=== PATIENT | male | born 1955 | race African-American/Black ===

== ENCOUNTER 2017-11-15 14:21 | Emergency (ER) | payer BC, MEDICAID ==
[~2017-11-15] VITALS: Ht 190.5 cm; Wt 104.3 kg
[2017-11-15 14:24] VITALS: BP_SYST 119
[2017-11-15] MEDS ORDERED: ASPIRIN 325 MG TABLET PO ONE (14:45)
[2017-11-15 15:49] LABS: HEMATOCRIT 40.4 % (36-54); HEMOGLOBIN 13.4 g/dL (14.0-18.0); MEAN CORPUSCULAR HEMOGLOBIN 32 pg (27-31); MEAN CORPUSCULAR HGB CONC 33 % (32-36); MEAN CORPUSCULAR VOLUME 96 fL (79.0-98.0); PLATELET COUNT (AUTO) 236 K/uL (130-430); RED BLOOD CELL COUNT(AUTO) 4.22 MIL/uL (4.2-6.2); RED CELL DISTRIBUTION WIDTH 12.1 % (9.0-15.0); WHITE BLOOD COUNT (AUTO) 3.6 K/uL (4.8-10.8)
[2017-11-15 16:04] LABS: CALCIUM 8.6 mg/dL (8.4-11.0); CREATININE 1.1 mg/dL (0.55-1.30); POTASSIUM 4.4 mmol/L (3.5-5.1)
[2017-11-15 16:09] LABS: ALBUMIN 2.9 g/dL (3.4-4.8); TOTAL BILIRUBIN 0.6 mg/dL (0.0-1.0)
[2017-11-15 16:55] LABS: BAND % (MANUAL) 0 % (0-6); BASOPHILS % (MANUAL) 0 % (0-2); EOSINOPHILS % (MANUAL) 3 % (0-7); LYMPHOCYTES % (MANUAL) 46 % (20-46); MONOCYTES % (MANUAL) 14 % (0-11)
[2017-11-15 16:59] VITALS: BP_SYST 132
== END 2017-11-15 17:00 | disposition home or self-care (01) ==
LOC: SED 14:21
DX: R07.89 Other chest pain (principal)
CPT/HCPCS: 36415; 71045; 80053; 83880; 84484; 85007; 85027; 85379; 93005; 99285

== ENCOUNTER 2019-07-23 15:53 | Emergency (ER) | payer MEDICARE, OTHER ==
[~2019-07-23] VITALS: Ht 190.5 cm; Wt 104.3 kg
== END 2019-07-23 18:10 | disposition home or self-care (01) ==
LOC: SED 15:53
DX: S69.82XA Other specified injuries of left wrist, hand and finger(s), initial encounter (principal); X58.XXXA Exposure to other specified factors, initial encounter; Y93.89 Activity, other specified; Y92.89 Other specified places as the place of occurrence of the external cause; Y99.8 Other external cause status
CPT/HCPCS: 99283

== ENCOUNTER 2019-08-31 15:05 | Emergency (ER) | payer MEDICARE, OTHER ==
[~2019-08-31] VITALS: Ht 190.5 cm; Wt 104.3 kg
--- NOTE | 2019-08-31 15:08 | NUR ---
Placed in room 01 . Placed on vehicle monitor technician, blood pressure machine and pulse oximeter. To gown for exam. Side rails up.
[2019-08-31 15:09] VITALS: BP_SYST 120
--- NOTE | 2019-08-31 15:10 | NUR ---
Pt walked in to ER with c/o chest pain 5/10 x 2 days. No other complaints at this time. V/S stable, pt is afebrile. Will continue to monitor.
--- NOTE | 2019-08-31 15:12 | NUR ---
ER Dr. Singh at bedside examining patient.
--- NOTE | 2019-08-31 15:15 | NUR ---
EKG performed by RN at bedside, given to MD for interpretation
--- NOTE | 2019-08-31 15:15 | NUR ---
# 18 gauge angiocath placed to RAC. Use of asceptic technique. Opsite placed over site. Blood return noted. Blood for lab drawn from site. Flushed with 10 cc of normal saline. No evidence of infiltration noted. Patient tolerated well.
--- NOTE | 2019-08-31 15:29 | NUR ---
Radiology at bedside performing CXR as ordered.
[2019-08-31 15:34] LABS: BASOPHILS % (AUTO) 1.2 % (0.0-2.0); EOSINOPHILS # (AUTO) 0.1 K/uL (0.0-0.4); EOSINOPHILS % (AUTO) 3.1 % (0.0-4.0); HEMATOCRIT 39.8 % (36-54); HEMOGLOBIN 13.4 g/dL (14.0-18.0); LYMPHOCYTES # (AUTO) 1.5 K/uL (1.0-5.5); LYMPHOCYTES % (AUTO) 48.2 % (20.5-51.5); MEAN CORPUSCULAR HEMOGLOBIN 31 pg (27-31); MEAN CORPUSCULAR HGB CONC 34 % (32-36); MEAN CORPUSCULAR VOLUME 93 fL (79.0-98.0); MONOCYTES # (AUTO) 0.3 K/uL (0.0-1.0); MONOCYTES % (AUTO) 10.2 % (1.7-9.3); NEUTROPHILS # (AUTO) 1.2 K/uL (1.8-7.7); NEUTROPHILS % (AUTO) 37.3 % (40.0-70.0); PLATELET COUNT (AUTO) 252 K/uL (130-430); RED BLOOD CELL COUNT(AUTO) 4.28 MIL/uL (4.2-6.2); RED CELL DISTRIBUTION WIDTH 12.2 % (9.0-15.0); WHITE BLOOD COUNT (AUTO) 3.2 K/uL (4.8-10.8)
[2019-08-31 15:52] LABS: CALCIUM 8.1 mg/dL (8.4-11.0); CREATININE 1.18 mg/dL (0.55-1.30); POTASSIUM 3.7 mmol/L (3.5-5.1)
[2019-08-31 16:08] LABS: ALBUMIN 2.8 g/dL (3.4-4.8); TOTAL BILIRUBIN 0.6 mg/dL (0.0-1.0)
--- NOTE | 2019-08-31 16:40 | NUR ---
Patient transported to radiology via wheechair, accompanied by staff.
[2019-08-31 16:45] LABS: CKMB RELATIVE INDEX 1.6 (0.0-2.9)
[2019-08-31] MEDS ORDERED: IOHEXOL 100 ML IV ONE (16:51)
--- NOTE | 2019-08-31 17:10 | NUR ---
pt returned from CT
[2019-08-31 18:09] VITALS: BP_SYST 110
== END 2019-08-31 18:09 | disposition home or self-care (01) ==
LOC: SED 15:05
DX: I71.2 Thoracic aortic aneurysm, without rupture (principal); R07.89 Other chest pain
CPT/HCPCS: 36415; 71045; 71275; 80053; 82550; 82553; 83880; 84484; 85025; 93005; 99285; Q9967